=== PATIENT | male | born 1990 | race Caucasian/White ===

== ENCOUNTER 2017-04-29 23:20 | Emergency (ER) | payer OTHER | END 2017-04-30 00:28 | disposition other institution (70) | LOC: ED 23:20 | DX: Z02.89 Encounter for other administrative examinations (principal); S70.311A Abrasion, right thigh, initial encounter; Y35.813A Legal intervention involving manhandling, suspect injured, initial encounter; Y93.89 Activity, other specified; Y99.8 Other external cause status; Y92.89 Other specified places as the place of occurrence of the external cause ==

== ENCOUNTER 2017-04-29 23:20 | Emergency (ER) | payer OTHER, MEDICAID ==
[2017-04-30 00:28] VITALS: BP 143/84
== END 2017-04-30 00:28 | disposition other institution (70) ==
LOC: ED 23:20
DX: S70.311A Abrasion, right thigh, initial encounter (principal); Z02.89 Encounter for other administrative examinations; Y35.813A Legal intervention involving manhandling, suspect injured, initial encounter; Y93.89 Activity, other specified; Y99.8 Other external cause status; Y92.89 Other specified places as the place of occurrence of the external cause

== ENCOUNTER 2019-01-16 21:40 | Emergency (ER) | payer OTHER ==
[~2019-01-16] VITALS: Ht 193 cm; Wt 120.7 kg
[2019-01-16 22:29] VITALS: BP 140/83; Ht 193 cm; Wt 120.7 kg
== END 2019-01-16 23:34 | disposition home or self-care (01) ==
LOC: ED 21:40
DX: F20.9 Schizophrenia, unspecified (principal); Z76.0 Encounter for issue of repeat prescription

== ENCOUNTER 2019-04-27 19:05 | Emergency (ER) | payer OTHER ==
[~2019-04-27] VITALS: Ht 193 cm; Wt 127.0 kg
[2019-04-27 19:28] VITALS: Ht 193 cm; Wt 127.0 kg
[2019-04-27 20:57] VITALS: BP 141/82
== END 2019-04-27 20:57 | disposition home or self-care (01) ==
LOC: ED 19:05
DX: F20.9 Schizophrenia, unspecified (principal); Z76.0 Encounter for issue of repeat prescription

== ENCOUNTER 2019-04-27 21:19 | Emergency (ER) | payer OTHER ==
[~2019-04-27] VITALS: Ht 193 cm; Wt 105.2 kg
[2019-04-27 21:50] VITALS: BP 136/97; Ht 193 cm; Wt 105.2 kg
== END 2019-04-27 22:54 | disposition home or self-care (01) ==
LOC: ED 21:19
DX: Z76.0 Encounter for issue of repeat prescription (principal)

== ENCOUNTER 2019-05-11 13:21 | Emergency (ER) | payer OTHER ==
[~2019-05-11] VITALS: Ht 193 cm; Wt 127.0 kg
[2019-05-11 13:28] VITALS: Ht 193 cm; Wt 127.0 kg
[2019-05-11 13:57] LABS: BASOPHIL % 0.3 % (0-2); PLATELET COUNT 280 x10^3mcL (130-400); RED CELL DISTRIBUTION WIDTH 13.3 % (11.5-14.5)
[2019-05-11 14:12] LABS: CALCIUM 8.5 mg/dL (8.5-10.1); CARBON DIOXIDE 24.7 mmol/L (21-32); CHLORIDE SERUM 105 mmol/L (98-107); CREATININE SERUM 0.8 mg/dL (0.7-1.3); GFR1 > 60 mL/min; GLUCOSE SERUM 116 mg/dL (74-106); POTASSIUM SERUM 3.7 mmol/L (3.5-5.1); SODIUM SERUM 140 mmol/L (136-145)
[2019-05-11 15:06] VITALS: BP 129/77
== END 2019-05-11 15:06 | disposition home or self-care (01) ==
LOC: ED 13:21
PROVIDERS: Emergency Medicine
DX: R55 Syncope and collapse (principal); R00.2 Palpitations; F32.9 Major depressive disorder, single episode, unspecified
CPT/HCPCS: 36415

== ENCOUNTER 2020-03-31 02:56 | Emergency (ER) | payer OTHER, SELFPAY ==
[~2020-03-31] VITALS: Ht 193 cm; Wt 136.1 kg
[2020-03-31 02:59] VITALS: Ht 193 cm; Wt 136.1 kg
[2020-03-31 03:57] VITALS: BP 142/89
== END 2020-03-31 03:57 | disposition home or self-care (01) ==
LOC: ED 02:56
DX: U07.1 COVID-19 (principal); F20.9 Schizophrenia, unspecified
CPT/HCPCS: U0003-CS